=== PATIENT | male | born 1980 | race Caucasian/White ===

== ENCOUNTER 2017-12-05 14:35 | Outpatient (CLI) | payer OTHER ==
--- NOTE | 2017-12-05 17:55 | Ultrasound Report ---
ULTRASOUND RIGHT NECK: 12/05/2017 CLINICAL INDICATION: Neck swelling. TECHNIQUE: Real-time scanning was performed with promotional representative static images obtained. FINDINGS: Ultrasound of the palpable abnormality in the right neck demonstrates a 6.1 x 4.8 x 2.7 cm homogeneously hypoechoic mass, which appears separate from the submandibular gland. This likely represents an enlarged lymph node. Further evaluation with CT of the neck with contrast is recommended. IMPRESSION: HOMOGENEOUSLY HYPOECHOIC 6 CM LESION CORRELATING WITH THE PALPABLE ABNORMALITY, LIKELY REPRESENTING ADENOPATHY. FURTHER EVALUATION WITH NECK CT WITH CONTRAST IS RECOMMENDED. TD: 12/05/2017 17:54
== END 2017-12-05 14:36 | disposition home or self-care (01) ==
LOC: DI 14:35
PROVIDERS: ATTEND Internal Medicine
DX: R22.1 Localized swelling, mass and lump, neck (principal)
CPT/HCPCS: 76536

== ENCOUNTER 2018-01-07 11:37 | Outpatient (CLI) | payer OTHER ==
[2018-01-07] MEDS ORDERED: IOPAMIDOL-300 100 ML VIAL ONE (11:56)
[2018-01-07] MEDS ORDERED: IOPAMIDOL-300 100 ML VIAL IVP ONE (12:49)
--- NOTE | 2018-01-07 14:38 | CT Report ---
CT NECK WITH CONTRAST: 01/07/2018 CLINICAL INDICATION: Right neck swelling. TECHNIQUE: Axial CT images of the neck were obtained with 80 mL Isovue 300 intravenously. COMPARISON: Ultrasound 12/05/2017. FINDINGS: The vascular structures enhance normally. The visualized intraorbital contents are unremarkable. There is mucosal thickening in the ethmoid air cells, maxillary sinuses, and sphenoid sinus. No air fluid levels are present. In the right neck, at the site of palpable abnormality, there is a 4.5 x 3.5 x 5.3 cm homogeneously hypodense nodule. This is adjacent to but not arising from the salivary glands, and does not arise from the carotid bifurcation. Differential considerations include an enlarged lymph node or possibly a complicated branchial cleft cyst. The lesion appears amenable to ultrasound-guided fine needle aspiration. Other nonenlarged anterior and posterior triangle lymph nodes are seen. The tracheal air column is widely patent throughout. Limited evaluation of the lung apices is unremarkable. Osseous structures are unremarkable. IMPRESSION: 1. LIKELY ENLARGED LYMPH NODE OR POSSIBLE COMPLICATED BRANCHIAL CLEFT CYST IN THE RIGHT NECK. THE LESION APPEARS AMENABLE TO ULTRASOUND-GUIDED FINE NEEDLE ASPIRATION. THE LESION DOES NOT ARISE FROM THE CAROTID BIFURCATION, AND DEMONSTRATES NO SIGNIFICANT VASCULARITY. 2. CHRONIC SINUS DISEASE. CT DOSE REDUCTION STATEMENT In accordance with CT protocol optimization, one or more of the following dose reduction techniques were utilized for this exam: automated exposure control, adjustment of mA and/or KV based on patient size, or use of iterative reconstructive technique. TD: 01/07/2018 13:54
== END 2018-01-07 11:38 | disposition home or self-care (01) ==
LOC: DI 11:37
PROVIDERS: ATTEND Internal Medicine
DX: R22.1 Localized swelling, mass and lump, neck (principal); J32.9 Chronic sinusitis, unspecified
CPT/HCPCS: 70491; Q9967

== ENCOUNTER 2018-01-23 09:33 | Outpatient (CLI) | payer OTHER ==
--- NOTE | 2018-01-23 12:58 | Ultrasound Report ---
Procedure Date: 01/23/2018 Accession Number: [id number] / [id number] Procedure: US - Fine Needle Aspiration CPT Code: FULL RESULT: EXAM: Fine Needle Aspiration DATE: 01/23/2018 11:53 AM CLINICAL HISTORY: R NECK SWELLING TECHNIQUE: Following obtaining informed consent, the patient's right neck was prepped and draped in the usual sterile fashion. The skin and soft tissues were anesthetized with buffered lidocaine. A needle was inserted into the right neck nodule, and approximately 35 mL of brownish cloudy fluid was aspirated without difficulty. Fluid was submitted to pathology in [facility]. The patient tolerated the procedure well. The lesion was aspirated to completion. FINDINGS: Complete aspiration of the cystic lesion in the right neck. IMPRESSION: Successful fine-needle aspiration of right neck lesion. Await pathology report.
[2018-01-23] MEDS ORDERED: BUFFERED LIDOCAINE 10 ML SYRINGE IU ONE (16:54)
== END 2018-01-23 09:34 | disposition home or self-care (01) ==
LOC: DI 09:33
PROVIDERS: ATTEND Internal Medicine
DX: R22.1 Localized swelling, mass and lump, neck (principal)
CPT/HCPCS: 10022; 88173; 88305